=== PATIENT | male | born 1945 | race Caucasian/White ===

== ENCOUNTER 2016-03-14 09:55 | Outpatient (CLI) ==
--- NOTE | 2016-03-14 10:43 | DI ---
EXAM: Views of the orbits. HISTORY: I claims TECHNIQUE: AP and lateral views of the orbits were obtained. FINDINGS: No definite radiopaque foreign bodies are seen. The soft tissues are normal. IMPRESSION: No evidence of radiopaque foreign body seen within the orbits.
--- NOTE | 2016-03-14 14:49 | MRI ---
EXAM: MRI right shoulder without contrast. HISTORY: Right shoulder pain. No right shoulder surgery reported.. TECHNIQUE: Using a local coil on a high field strength magnet multiplanar multisequence magnet reso nance imaging was performed of the right shoulder without intravenous or intra-articular gadolinium contrast. COMPARISON: Two-view plain film examination right shoulder 07/16/2012.. FINDINGS: A predominately Type I acromion with some slight anterolateral downsloping with subacromi al remodeling. Some thickening along the acromial attachment the coracoacromial ligament/arch which is otherwise intact. Moderate right acromioclavicular joint osteoarthrosis. Deltoid musculature w ithin normal limits signal intensity. No appreciable free fluid subacromial/subdeltoid bursa. Muscle bulk of the rotator cuff within normal limit. Moderate to marked supraspinatus tendinosis mo st evident over the far anterior insertional aspect. Bursal sided fraying. Posterior mild infraspi natus tendinosis. No full-thickness rotator cuff tear identified. Posterior intact teres minor ten don fibers. Anterior intact subscapularis tendon fibers. The long head of the biceps tendon shows intact fibers located in expected position within the bicipital groove with intra-articular biceps t endinosis. Right humeral head seated. Early right glenohumeral joint osteoarthrosis. No right glenohumeral kindra int centered bone erosions. Physiologic amount fluid right glenohumeral joint. Focus of intraosseo us cysts/ganglion formation along the base of the coracoid or possible prominent vascularity/hyperem ia. Right glenoid labrum poorly characterized and incompletely evaluated on this non-arthrographic examination. IMPRESSION: Moderate right acromioclavicular joint osteoarthrosis. Moderate to marked supraspinatus tendinosis most evident over the far anterior insertional aspect. Bursal sided fraying. Posterior mild infraspinatus tendinosis. No full-thickness rotator cuff tear identified. No appreciable free fluid subacromial/subdeltoid bursa. Intact long head biceps tendon fibers with intra-articular tendinosis. Early right glenohumeral joint osteoarthrosis. Recommendation is obtainment and correlation with recent plain film radiographs of the right shoulde r as none are available for comparison at the time of this dictation.
== END 2016-03-14 09:56 | disposition home or self-care (01) ==
LOC: RAD 09:55
PROVIDERS: ATTEND Emergency Medicine
DX: M25.511 Pain in right shoulder (principal)

== ENCOUNTER 2017-04-06 11:44 | Outpatient (CLI) | END 2017-04-06 11:45 | disposition home or self-care (01) | LOC: LAB 11:44 | PROVIDERS: ATTEND Internal Medicine Rheumatology | DX: N18.3 Chronic kidney disease, stage 3 (moderate) (principal); I10 Essential (primary) hypertension; E11.9 Type 2 diabetes mellitus without complications; E78.5 Hyperlipidemia, unspecified; R53.83 Other fatigue; M06.9 Rheumatoid arthritis, unspecified; Z79.899 Other long term (current) drug therapy | CPT/HCPCS: 36415; 80053; 80061; 80074; 81001; 82043; 82306; 83036; 83970; 84443; 84550; 85025; 86200; 86430 ==

== ENCOUNTER 2017-04-22 12:28 | Outpatient (CLI) | END 2017-04-22 12:29 | disposition home or self-care (01) | LOC: LAB 12:28 | PROVIDERS: ATTEND Internal Medicine Rheumatology | DX: R53.83 Other fatigue (principal); M05.79 Rheumatoid arthritis with rheumatoid factor of multiple sites without organ or systems involvement; N18.3 Chronic kidney disease, stage 3 (moderate); Z79.899 Other long term (current) drug therapy | CPT/HCPCS: 36415; 87522 ==

== ENCOUNTER 2017-05-01 21:15 | Emergency (ER) ==
[2017-05-01 21:36] VITALS: BP 155/69; TEMP 98; BMI 25.4
[2017-05-01] MEDS ORDERED: BACTRIM DS 800/160 MG PO STA (21:54)
--- NOTE | 2017-05-01 22:10 | ED.PDOC ---
General ED Provider: Dr. VASU KAN Chief Complaint: Bite Stated Complaint: Patient is a 72 year old male who complains of left her wound that started 3 days ago after wearing his high boots Thinks he may have been bit by a spider. Has been taking an old prescription of penicillin. He states that the would has slightly enlarged but has dried up with no drainage and is flat. They were concerned that they area not on the right antibiotics. he did clean the would initially with alcohol and peroxide. Time Seen by Physician: 21:30 Mode of Arrival: Walk-In Information Source: Patient, Family Exam Limitations: No limitations Primary Care Provider: CAROLE DAWKINS Nursing and Triage Documentation Reviewed and Agree: Yes Reviewed sepsis parameters & appropriate labs ordered?: No System Inflammatory Response Syndrome: Not Applicable Sepsis Protocol: For patient's 13 years and over: Temp is 96.8 and below OR 101 and greater Pulse >90 BPM Resp >20/minute Acutely Altered Mental Status Are patient's symptoms suggestive of a new infection, such as: -Pneumonia -Skin, Soft Tissue -Endocarditis -UTI -Bone, Joint Infection -Implantable Device -Acute Abdominal Infection -Wound Infection -Meningitis -Blood Stream Catheter Infection -Unknown System Inflammatory Response Syndrome: Not Applicable Skin Complaint Exam - Skin/Soft Tissue Complaint/Exam Onset/Duration: 3 days Symptoms Are: Still present Timing: Constant Initial Severity: Moderate Current Severity: Mild Location: Left mid her Character: Reports: Redness. Denies: Swelling, Raised, Painful Aggravating: Reports: None Alleviating: Reports: None Associated Signs and Symptoms: Reports: Red streaks. Denies: Fever, Chills, Itching, Drainage, Bruising, Tenderness, Joint swelling Related History: Reports: Insect bite/sting. Denies: Similar episode, Recent trauma, Recent Med change, Prior MRSA/VRE, Recent inpatient, Recent travel, Immunocompromised Related Surgical History: Reports: None Recent Exposure to Others w/Similar Symptoms: No Skin Findings: Present: Erythema (3 cm with a dry granulation tissue at the center measuring 1.75 cm in diameter. ) Joint Tenderness Present: No Differential Diagnoses: Abscess, Cellulitis Review of Systems - Review Of Systems Constitutional: Reports: No symptoms Eyes: Reports: No symptoms Ears, Nose, Mouth, Throat: Reports: No symptoms Respiratory: Reports: No symptoms Cardiac: Reports: No symptoms GI: Reports: No symptoms : Reports: No symptoms Musculoskeletal: Reports: No symptoms Skin: Reports: Lesions Neurological: Reports: Anxiety Endocrine: Reports: No symptoms Hematologic/Lymphatic: Reports: No symptoms All Other Systems: Reviewed and Negative Past Medical History - Past Medical History Previously Healthy: Yes Endocrine: Reports: DM 2, Dyslipidemia Cardiovascular: Reports: CAD, Hypertension Respiratory: Reports: None Hematological: Reports: None Gastrointestinal: Reports: None Genitourinary: Reports: CKD Neuro/Psych: Reports: CVA Musculoskeletal: Reports: Arthritis Cancer: Reports: Skin - Surgical History General Surgical History: Reports: Tonsillectomy, CABG, Other (bilateral cataracats, Multiple eye surgeries. ) - Family History Family History: Reports: Unknown - Social History Smoking Status: Former smoker Hx Substance Use: Yes (ALCOHOLIC CLEAN FOR 30 YEARS) Alcohol Screening: None - Immunizations Tetanus Shot up to Date: (UNKNOWN) Physical Exam - Physical Exam Appearance: Well-appearing, No pain distress, Well-nourished Eyes: NOEMI, EOMI, Conjunctiva clear ENT: Ears normal, Nose normal, Oropharynx normal Respiratory: Airway patent, Breath sounds clear, Breath sounds equal, Respirations nonlabored Cardiovascular: RRR, Pulses normal, No rub, No murmur GI/: Soft, Nontender, No masses, Bowel sounds normal, No Organomegaly Musculoskeletal: Normal strength, ROM intact, No edema, No calf tenderness Skin: Warm, Dry Neurological: Sensation intact, Motor intact, Reflexes intact, Cranial nerves intact, Alert, Oriented Psychiatric: Affect appropriate, Mood appropriate Critical Care Note - Critical Care Note Total Time (mins): 0 Course - Course Orders, Labs, Meds: Orders Category Date Time Status Sulfamethoxazole/Trimethoprim [Bactrim Ds 800/160 mg] MEDS 05/01/17 21:54 Discontinued 1 tab PO ONCE STA Medications Discontinued Medications Generic Name Dose Route Start Last Admin Trade Name Freq PRN Reason Stop Dose Admin Trimethoprim/Sulfamethoxazole 1 tab 05/01/17 21:54 05/01/17 22:02 Bactrim Ds 800/160 Mg PO 05/01/17 21:55 1 tab ONCE STA Administration Vital Signs: Temp Pulse Resp BP Pulse Ox 05/01/17 21:18 98 F 66 20 155/69 H 97 Departure - Departure Time of Disposition: 22:11 Disposition: HOME SELF-CARE Discharge Problem: Healing wound Spider bite Qualifiers: Encounter type: initial encounter Injury intent: accidental or unintentional Qualified Code(s): T63.301A - Toxic effect of unspecified spider venom, accidental (unintentional), initial encounter Instructions: Wound Infection (ED) Condition: Stable Pt referred to PMD for follow-up: Yes IPMP verified?: No Additional Instructions: Take Medications as prescribe Follow up with PCP in 3 days Keep would Dry Prescriptions: Sulfamethoxazole/Trimethoprim [Bactrim Ds Tablet] 1 each PO BID #20 tablet Allergies/Adverse Reactions: Allergies No Known Allergies Allergy (Verified 07/26/13 07:31) Home Medications: Ambulatory Orders Al[place]iren Hemifumarate [Tekturna] 300 mg PO DAILY 05/01/17 Amlodipine Besylate [Norvasc] 10 mg PO DAILY 05/01/17 Aspirin 325 mg PO DAILY 05/01/17 Clopidogrel Bisulfate [Plavix] 75 mg PO DAILY 05/01/17 Ferrous Sulfate [Iron] 325 mg PO TID 05/01/17 Folic Acid 1 mg PO DAILY 05/01/17 Insulin Aspart [Novolog Insulin] 0 unit SUBCUT DIRECTED 05/01/17 Losartan Potassium [Cozaar] 100 mg PO DAILY 05/01/17 Methotrexate Sodium [Methotrexate] 2.5 mg PO DIRECTED 05/01/17 Omeprazole [Prilosec] 20 mg PO BIDAC 05/01/17 Pravastatin Sodium [Pravachol] 40 mg PO BID 05/01/17 Sulfamethoxazole/Trimethoprim [Bactrim Ds Tablet] 1 each PO BID #20 tablet 05/01 Disposition Discussed With: Patient, Family
== END 2017-05-01 22:22 | disposition home or self-care (01) ==
LOC: ED 21:15
DX: T63.301A Toxic effect of unspecified spider venom, accidental (unintentional), initial encounter (principal)
CPT/HCPCS: 99282

== ENCOUNTER 2017-08-05 14:26 | Outpatient (CLI) | payer OTHER | END 2017-08-05 14:27 | disposition home or self-care (01) | LOC: LAB 14:26 | PROVIDERS: ATTEND Internal Medicine Rheumatology | DX: R53.83 Other fatigue (principal); G62.9 Polyneuropathy, unspecified; M19.90 Unspecified osteoarthritis, unspecified site; M79.1 Myalgia; E83.42 Hypomagnesemia; E55.9 Vitamin D deficiency, unspecified; D53.8 Other specified nutritional anemias | CPT/HCPCS: 36415; 82306; 82550; 82607; 82728; 82746; 83735; 84439; 84443; 84550; 85651; 86038; 86320; 86325 ==

== ENCOUNTER 2017-08-22 11:24 | Outpatient (CLI) | payer OTHER | END 2017-08-22 11:25 | disposition home or self-care (01) | LOC: LAB 11:24 | PROVIDERS: ATTEND Internal Medicine Rheumatology | DX: R53.83 Other fatigue (principal); M05.79 Rheumatoid arthritis with rheumatoid factor of multiple sites without organ or systems involvement; N18.3 Chronic kidney disease, stage 3 (moderate); Z79.899 Other long term (current) drug therapy | CPT/HCPCS: 36415; 87522 ==

== ENCOUNTER 2017-08-28 09:05 | Outpatient (CLI) ==
--- NOTE | 2017-08-28 10:09 | CT ---
EXAM: CT abdomen pelvis without contrast HISTORY: Pain in and kidney impairment COMPARISON: None TECHNIQUE: CT abdomen pelvis performed without intravenous contrast. Coronal and sagittal reformatt ed images obtained. FINDINGS: Please refer to separate report CT chest regarding findings in the lower chest. No free a ir. No acute abnormalities of the bones. Degenerative change in the spine. Evaluation organ parenc hyma limited without contrast. Liver grossly unremarkable. Patient status post cholecystectomy. Panc reas grossly unremarkable. Spleen grossly unremarkable. Adrenals unremarkable. Bilateral renal cys ts measure up to 1.6 cm. No hydronephrosis or nephrolithiasis. Areas of renal cortical scarring li yuni related to remote insult. Aorta normal in caliber. Moderate atherosclerosis. Mild circumferen tial bladder wall thickening. Prostate is enlarged moderately enlarged. No lymphadenopathy or ascit es. Small fat-containing periumbilical hernia. Stomach appears normal. No dilated loops small teresa l. Appendix appears normal. Mild to moderate fecal retention in the colon. Colonic diverticulosis. IMPRESSION: 1. Moderately enlarged prostate. Mild bladder wall thickening may relate to changes of chronic outl et obstruction or cystitis. 2. Colonic diverticulosis. 3. Mild to moderate fecal retention. 4. Atherosclerosis. 5. No hydronephrosis or nephrolithiasis. Bilateral renal cysts. Areas of bilateral renal cortical scarring likely related to remote insult.
--- NOTE | 2017-08-28 10:09 | CT ---
EXAM: CT chest without contrast. HISTORY: Anemia. Chest pain. COMPARISON: 07/16/2012. TECHNIQUE: Multiple axial images of the chest were obtained without intravenous contrast. Images we re reformatted in the sagittal and coronal planes. FINDINGS: Large low density right thyroid nodule measures up to 3.7 x 3 x 3.5 cm with some mass effe ct on the trachea. Evaluation for lymphadenopathy is limited by lack of intravenous contrast. There has been previous CABG. Heart size is normal. No pericardial effusion identified. Atherosclerotic calcifications are present. There are linear areas of consolidation in the posterior right upper lobe and in both lower lobes, wh ich were present on prior examination although decreased in size. No pleural effusion or pneumothora x detected. Calcified granulomatous changes are present. Limited images of the upper abdomen will be reported separately. No acute osseous abnormality identi fied. IMPRESSION: 1. Bilateral areas of scarring. No acute pulmonary process. 2. Large right thyroid nodule. Ultrasound correlation advised
--- NOTE | 2017-08-28 13:01 | NM ---
EXAM: Whole body bone scan HISTORY: Whole body pains COMPARISON: None of this type TECHNIQUE: Anterior and posterior whole body bone scans were obtained following the intravenous admin istration of 23.9 mCi of technetium 99m HDP, followed by spot views of areas of interest. FINDINGS: There is a focus of increased activity at the base of the thumb bilaterally representing in jection site. Mildly increased activity is present in the mid thoracic spine representing a very mil d degenerative disease. No other abnormal focus of increased or decreased isotope activity is seen. Kidneys and soft tissues are normal. IMPRESSION: Mild degenerative change mid thoracic spine. No other abnormality.
== END 2017-08-28 09:06 | disposition home or self-care (01) ==
LOC: RAD 09:05
PROVIDERS: ATTEND Internal Medicine Medical Oncology
DX: N18.9 Chronic kidney disease, unspecified (principal); D63.1 Anemia in chronic kidney disease; R53.83 Other fatigue; R20.0 Anesthesia of skin; M79.1 Myalgia; I25.2 Old myocardial infarction; E11.8 Type 2 diabetes mellitus with unspecified complications; Z79.4 Long term (current) use of insulin; Z12.5 Encounter for screening for malignant neoplasm of prostate; Z86.73 Personal history of transient ischemic attack (TIA), and cerebral infarction without residual deficits; Z79.899 Other long term (current) drug therapy
CPT/HCPCS: 36415; 80053; 80074; 81001; 82668; 82728; 83540; 83550; 83615; 85025; 85045; 85610; 85651; 85730; 86320; 86880; 87086; 87389

== ENCOUNTER 2017-09-04 11:53 | Outpatient (CLI) | payer OTHER ==
--- NOTE | 2017-09-04 13:26 | US ---
EXAM: Thyroid ultrasound HISTORY: Thyroid nodules. COMPARISON: CT chest 08/28/2017 TECHNIQUE: Sonographic evaluation of the thyroid was performed with limited doppler. FINDINGS: The right thyroid measures 5.4 x 3.0 x 3.4 cm. The right thyroid demonstrates a large complex nodule /mass measuring 3.4 x 3.4 x 3.7 centimeters with internal color Doppler flow. The isthmus measures 0.4 cm in thickness and is normal in echogenicity. The left thyroid measures 4.6 x 2.0 x 1.3 cm. There is a complex heterogeneity with multiple hypoecho ic complex nodules. The largest measures 1.4 x 0.6 x 1.0 cm. IMPRESSION: Large complex right thyroid mass/nodule with mild internal color Doppler flow. Tissue sampling is recommended to further evaluate. Additional multiple nodules and cysts are noted in the left thyroid. This may represent a component of multinodular goiter.
== END 2017-09-04 11:54 | disposition home or self-care (01) ==
LOC: RAD 11:53
PROVIDERS: ATTEND Internal Medicine Medical Oncology
DX: E04.1 Nontoxic single thyroid nodule (principal)

== ENCOUNTER 2017-09-25 10:51 | Outpatient (CLI) | END 2017-09-25 10:52 | disposition home or self-care (01) | LOC: LAB 10:51 | PROVIDERS: ATTEND Nurse Practitioner Family | DX: E11.22 Type 2 diabetes mellitus with diabetic chronic kidney disease (principal); I13.10 Hypertensive heart and chronic kidney disease without heart failure, with stage 1 through stage 4 chronic kidney disease, or unspecified chronic kidney disease; N18.3 Chronic kidney disease, stage 3 (moderate); D63.1 Anemia in chronic kidney disease; I25.10 Atherosclerotic heart disease of native coronary artery without angina pectoris; J44.9 Chronic obstructive pulmonary disease, unspecified; E78.5 Hyperlipidemia, unspecified; E04.1 Nontoxic single thyroid nodule; M06.9 Rheumatoid arthritis, unspecified | CPT/HCPCS: 36415; 80053; 80061; 81001; 82306; 82570; 83036; 83970; 84156; 84443; 84550; 85025 ==

== ENCOUNTER 2018-01-08 13:59 | Outpatient (CLI) | payer OTHER | END 2018-01-08 14:00 | disposition home or self-care (01) | LOC: LAB 13:59 | PROVIDERS: ATTEND Internal Medicine Medical Oncology | DX: E78.5 Hyperlipidemia, unspecified (principal); E10.9 Type 1 diabetes mellitus without complications; N18.9 Chronic kidney disease, unspecified; D63.1 Anemia in chronic kidney disease; E04.1 Nontoxic single thyroid nodule; M06.9 Rheumatoid arthritis, unspecified; Z79.4 Long term (current) use of insulin; M79.18 Myalgia, other site | CPT/HCPCS: 36415; 80053; 82248; 82728; 83036; 83540; 83550; 83615; 84443; 85008; 85025; 85045; 86880 ==

== ENCOUNTER 2018-01-22 13:21 | Outpatient (CLI) | payer OTHER | END 2018-01-22 13:22 | disposition home or self-care (01) | LOC: LAB 13:21 | PROVIDERS: ATTEND Family Medicine | DX: I10 Essential (primary) hypertension (principal); Z09 Encounter for follow-up examination after completed treatment for conditions other than malignant neoplasm; D64.9 Anemia, unspecified | CPT/HCPCS: 36415; 85025 ==

== ENCOUNTER 2018-04-02 12:20 | Outpatient (CLI) | END 2018-04-02 12:21 | disposition home or self-care (01) | LOC: LAB 12:20 | PROVIDERS: ATTEND Internal Medicine Medical Oncology | DX: D64.9 Anemia, unspecified (principal); E04.1 Nontoxic single thyroid nodule; N18.9 Chronic kidney disease, unspecified | CPT/HCPCS: 36415; 80053; 82607; 82728; 82746; 83540; 83550; 83615; 85025; 86880 ==

== ENCOUNTER 2018-04-02 17:17 | Emergency (ER) ==
[2018-04-02 17:30] VITALS: BP 155/74; TEMP 96.5; BMI 25.1
--- NOTE | 2018-04-02 18:20 | CT ---
Exam: CT of the brain without intravenous contrast. Comparison: None available. Reason for exam: Dizziness. FINDINGS: No acute intracranial hemorrhage, mass effect, ventricular dilatation, or territorial infa rction. The quadrigeminal and ambient cisterns are patent. There is no extraaxial fluid collection. The calvarium appears intact without depressed fracture. Parenchymal changes are seen consistent w ith chronic microvascular disease. Impression: 1. No acute intracranial findings. 2. Parenchymal change consistent with chronic microvascular disease
--- NOTE | 2018-04-02 18:25 | CT ---
EXAM: CT chest without contrast HISTORY: Dizziness/cough TECHNIQUE: Multi-slice transaxial helical with coronal and sagittal reformed images CONTRAST: None COMPARISON: CT chest from 08/28/2017 FINDINGS: There is a large hypodense nodule in the right thyroid lobe measuring 3.9 cm. This has sli ghtly increased in size. The aorta is atherosclerotic. Post CABG changes are noted. The ascending aorta is ectatic to 32.1 mm. The heart is mildly enlarged. Aortic arch and descending aorta have no rmal caliber. No suspicious lymphadenopathy is detected. A right paratracheal space lymph node is c alcified. The lungs are emphysematous. The dependent lungs are atelectatic. A simple acquired renal cysts are noted. The solid abdominal organs are otherwise normal in their vi sualized portions of the upper abdomen. The gallbladder is surgically absent and there is no signifi cant biliary dilatation. The bones are free of suspicious osteolytic or osteoblastic lesions. IMPRESSION: 1. Bibasilar atelectasis and/or pneumonia. 2. Goiter with enlarging hypodense nodule right thyroid lobe measuring 3.9 cm. Correlate with detai ls of the previous ultrasound. 3. Post CABG changes. 4. Ectasia of the ascending aorta to 32.1 mm. 5. Emphysema. 6. Simple acquired renal cysts.
--- NOTE | 2018-04-02 18:33 | ED.PDOC ---
General ED Provider: Dr. ALVINO FISHER Chief Complaint: Dizziness Stated Complaint: dizziness Time Seen by Physician: 17:17 (seen with nurse at all time no chest pain , no syncope,no S.O.B) Mode of Arrival: Walk-In Information Source: Patient Exam Limitations: No limitations Primary Care Provider: SABAS GAMBLE Nursing and Triage Documentation Reviewed and Agree: Yes Does patient meet sepsis criteria?: No System Inflammatory Response Syndrome: Not Applicable Sepsis Protocol: For patient's 13 years and over: Temp is 96.8 and below OR 101 and greater Pulse >90 BPM Resp >20/minute Acutely Altered Mental Status Are patient's symptoms suggestive of a new infection, such as: -Pneumonia -Skin, Soft Tissue -Endocarditis -UTI -Bone, Joint Infection -Implantable Device -Acute Abdominal Infection -Wound Infection -Meningitis -Blood Stream Catheter Infection -Unknown Neurological Complaint Exam - Dizziness Complaint/Exam Last Known Well: LAST WEEK Onset: Gradual Duration: 1 DAY Symptoms Are: Resolved Timing: Intermittent Episodes Lasting: Seconds Initial Severity: Mild Current Severity: None Character: Reports: Lightheaded, Dizzy Aggravating: Reports: None Alleviating: Reports: None Associated Signs and Symptoms: Denies: Nausea, Vomiting, Diaphoresis, Tinnitus, Chest pain, Short of air, Palpitations, Unsteady gait, GI blood loss, Visual changes, Decreased oral intake, Change in medication, Change in diet, OTC meds, Loss of balance Related History: Similar episode Cardiac Risk Factors: Reports: Hypertension, Diabetes, Elevated lipids CVA Risk Factors: Reports: Diabetes, Hypertension Related Surgical History: Reports: None JVD Present: No Carotid Bruit Present: No Nystagmus Present: No Gag Reflex Present: Yes Meningeal Signs Positive: No Focal Weakness: Present: None Focal Sensory Loss: Present: None Gait: Normal Spegsw-is-[id number]: Normal Findings Babinski Sign: Negative Right, Negative Left Differential Diagnoses: Dysrhythmia, Hypovolemia, Labyrinthitis, Metabolic abnormalities, Vasovagal reaction Quality Indicators for Cardiac Chest Pain: EKG in 10min. Quality Indicators for AMI: EKG in 10min. Quality Indicator For Non-Traumatic Chest Pain/Syncope: EKG Performed Review of Systems - Review Of Systems Constitutional: Reports: No symptoms Eyes: Reports: No symptoms Ears, Nose, Mouth, Throat: Reports: No symptoms Respiratory: Reports: No symptoms Cardiac: Reports: No symptoms GI: Reports: No symptoms : Reports: No symptoms Musculoskeletal: Reports: No symptoms Skin: Reports: No symptoms Neurological: Reports: Other (DIZZINESS) Endocrine: Reports: No symptoms Hematologic/Lymphatic: Reports: No symptoms All Other Systems: Reviewed and Negative Past Medical History - Past Medical History Previously Healthy: Yes Endocrine: Reports: DM 2, Dyslipidemia Cardiovascular: Reports: CAD, Hypertension Respiratory: Reports: None Hematological: Reports: None Gastrointestinal: Reports: None Genitourinary: Reports: CKD Neuro/Psych: Reports: CVA Musculoskeletal: Reports: Arthritis Cancer: Reports: Skin - Surgical History General Surgical History: Reports: Tonsillectomy, CABG, Other (bilateral cataracats, Multiple eye surgeries. ) - Family History Family History: Reports: Unknown - Social History Smoking Status: Former smoker Hx Substance Use: Yes (ALCOHOLIC CLEAN FOR 30 YEARS) Alcohol Screening: None Physical Exam - Physical Exam Appearance: Well-appearing, No pain distress, Well-nourished Eyes: NOEMI, EOMI, Conjunctiva clear ENT: Ears normal, Nose normal, Oropharynx normal Respiratory: Airway patent, Breath sounds clear, Breath sounds equal, Respirations nonlabored Cardiovascular: RRR, Pulses normal, No rub, No murmur GI/: Soft, Nontender, No masses, Bowel sounds normal, No Organomegaly Musculoskeletal: Normal strength, ROM intact, No edema, No calf tenderness Skin: Warm, Dry, Normal color Neurological: Sensation intact, Motor intact, Reflexes intact, Cranial nerves intact, Alert, Oriented Psychiatric: Affect appropriate, Mood appropriate - NIH Stroke Scale 1a. Level of Consciousness: 0=Alert and keenly responsive 1b. Level of Consciousness Questions: 0=Answers correctly to two questions 1c. Level of Consciousness Commands: 0=Performs two tasks correctly 2. Best Gaze: 0=Normal 3. Visual: 0=No visual loss 4. Facial Palsy: 0=Normal 5a. Motor Left Arm: 0=No drift,arm holds 90 degrees for 10 sec., leg 30 degrees for 5 sec. 5b. Motor Right Arm: 0=No drift,arm holds 90 degrees for 10 sec., leg 30 degrees for 5 sec. 6a. Motor Left Le=No drift,arm holds 90 degrees for 10 sec., leg 30 degrees for 5 sec. 6b. Motor Right Le=No drift,arm holds 90 degrees for 10 sec., leg 30 degrees for 5 sec. 7. Limb Ataxia: 0=Absent 8. Sensory: 0=Normal 9. Best Language: 0=No aphasia 10. Dysarthria: 0=Normal 11. Extincion and Inattention: 0=Normal Stroke Scale Total: 0 Interpretation - Radiology Interpretation Radiology Interpretation By: Radiologist Radiology Results: No acute changes Physician Notification - Case Discussed Physician Notified: PMD Time of Notification: 18:34 (WILL SEE HIM IN THE OFFICE IN AM) Critical Care Note - Critical Care Note Total Time (mins): 0 Course - Course Hematology/Chemistry: 04/02/18 18:00 04/02/18 18:00 Orders, Labs, Meds: Lab Review 04/02/18 04/02/18 04/02/18 18:00 18:00 18:00 WBC 5.81 RBC 3.26 L Hgb 7.6 L Hct 24.9 L MCV 76.4 L MCH 23.3 L MCHC 30.5 L RDW Coeff of Keny 16.6 H Plt Count 294 Immature Gran % (Auto) 0.3 Neut % (Auto) 75.6 Lymph % (Auto) 14.8 Davison % (Auto) 6.9 Eos % (Auto) 1.9 Baso % (Auto) 0.5 Immature Gran # (Auto) 0.0 Neut # (Auto) 4.4 Lymph # (Auto) 0.9 Davison # (Auto) 0.4 Eos # (Auto) 0.1 Baso # (Auto) 0.0 PT 9.4 INR 0.94 APTT 19.6 L Sodium 135.6 Potassium 4.00 Chloride 97.1 L Carbon Dioxide 25.8 Anion Gap 16.70 BUN 17.8 Creatinine 1.17 H Estimated GFR (MDRD) 61.00 BUN/Creatinine Ratio 15.21 Glucose 308.5 H D Lactic Acid Calcium 9.10 Total Bilirubin 0.34 AST 22.4 ALT 13.1 Alkaline Phosphatase 51.0 L Total Creatine Kinase 67.2 Troponin I < 0.012 Total Protein 7.44 Albumin 4.35 Globulin 3.09 Albumin/Globulin Ratio 1.40 04/02/18 18:00 WBC RBC Hgb Hct MCV MCH MCHC RDW Coeff of Keny Plt Count Immature Gran % (Auto) Neut % (Auto) Lymph % (Auto) Davison % (Auto) Eos % (Auto) Baso % (Auto) Immature Gran # (Auto) Neut # (Auto) Lymph # (Auto) Davison # (Auto) Eos # (Auto) Baso # (Auto) PT INR APTT Sodium Potassium Chloride Carbon Dioxide Anion Gap BUN Creatinine Estimated GFR (MDRD) BUN/Creatinine Ratio Glucose Lactic Acid 1.41 Calcium Total Bilirubin AST ALT Alkaline Phosphatase Total Creatine Kinase Troponin I Total Protein Albumin Globulin Albumin/Globulin Ratio Orders Category Date Time Status EKG-(ED ONLY) Stat CARDIO 04/02/18 17:37 Ordered BLOOD CULTURE (ED ONLY) Stat LAB 04/02/18 18:00 Received CBC W/ AUTO DIFF Stat LAB 04/02/18 18:00 Completed COMPREHENSIVE METABOLIC PANEL Stat LAB 04/02/18 18:00 Completed CREATINE KINASE Stat LAB 04/02/18 18:00 Completed FLU A/B MOLECULAR Stat LAB 04/02/18 18:23 Received LACTIC ACID Stat LAB 04/02/18 18:00 Completed MOLECULAR GROUP A STREP Stat LAB 04/02/18 18:26 Received PARTIAL THROMBOPLASTIN TIME Stat LAB 04/02/18 18:00 Completed PROCALCITONIN Stat LAB 04/02/18 18:00 Received PT WITH INR Stat LAB 04/02/18 18:00 Completed TROPONIN I Stat LAB 04/02/18 18:00 Completed URINALYSIS C & S IF INDICATED Stat LAB 04/02/18 17:[address] CHEST W/O CONTRAST Stat RADS 04/02/18 17:[address] HEAD W/O CONTRAST Stat RADS 04/02/18 17:42 Completed Vital Signs: Temp Pulse Resp BP Pulse Ox 04/02/18 17:17 96.5 F L 75 20 155/74 H 99 Departure - Departure Time of Disposition: 18:34 Disposition: HOME SELF-CARE Discharge Problem: Dizziness Anemia Qualifiers: Anemia type: unspecified type Qualified Code(s): D64.9 - Anemia, unspecified Instructions: Dizziness (ED), Lightheadedness (ED) Condition: Good Pt referred to PMD for follow-up: Yes IPMP verified?: No Additional Instructions: Please call your Family Physician as soon as possible to schedule a follow-up appointment. Allergies/Adverse Reactions: Allergies colchicine Adverse Reaction (Verified 04/02/18 17:28) indomethacin [From Indocin] Adverse Reaction (Verified 04/02/18 17:28) indomethacin sodium [From Indocin] Adverse Reaction (Verified 04/02/18 17:28) Home Medications: Ambulatory Orders Aspirin 325 mg PO DAILY 05/01/17 Calcium Carbonate [Calcium] 600 mg PO DAILY 12/14/17 Diphenhydramine HCl [Allergy] 25 mg PO PRN PRN 12/14/17 Folic Acid 3 mg PO DAILY 04/02/18 Mirabegron [Myrbetriq] 50 mg PO DAILY 04/02/18 Ranitidine HCl [Zantac] 150 mg PO BIDAC 04/02/18 Disposition Discussed With: Patient, Family
== END 2018-04-02 18:59 | disposition home or self-care (01) ==
LOC: ED 17:17
DX: R42 Dizziness and giddiness (principal); D64.9 Anemia, unspecified; N18.9 Chronic kidney disease, unspecified; I10 Essential (primary) hypertension; E78.5 Hyperlipidemia, unspecified; E11.9 Type 2 diabetes mellitus without complications; I25.810 Atherosclerosis of coronary artery bypass graft(s) without angina pectoris; Z86.73 Personal history of transient ischemic attack (TIA), and cerebral infarction without residual deficits; Z79.899 Other long term (current) drug therapy; E04.1 Nontoxic single thyroid nodule
CPT/HCPCS: 36415; 80053; 81001; 82550; 82607; 82728; 82746; 83540; 83550; 83605; 83615; 84145; 84484; 85025; 85610; 85730; 86880; 87040; 87502; 87651; 93005; 93010; 99283

== ENCOUNTER 2018-04-04 11:43 | Outpatient (CLI) | payer OTHER ==
--- NOTE | 2018-04-04 14:05 | US ---
EXAM: Thyroid ultrasound HISTORY: Thyroid nodule COMPARISON: 09/04/2017 TECHNIQUE: Thyroid ultrasound was performed FINDINGS: Right thyroid measures 3.6 x 3.6 x 5.8 cm. Left thyroid measures 2.2 x 1.3 x 4.9 cm. Thy roid isthmus measures 0.4 cm. Thyroid normal in echogenicity vascularity. There is a predominately solid dominant nodule in the right mid thyroid measuring 3.6 x 3.5 x 3.5 centimeters. Several small cystic and hypoechoic nodules left thyroid, largest measuring 0.7 x 0.6 x 0.5 cm in the mid thyroid. Nodules are unchanged from prior examination. IMPRESSION: Stable bilateral thyroid nodules, including a dominant right thyroid nodule that has bee n previously biopsied.
== END 2018-04-04 11:44 | disposition home or self-care (01) ==
LOC: RAD 11:43
PROVIDERS: ATTEND Otolaryngology
DX: E04.1 Nontoxic single thyroid nodule (principal); D64.9 Anemia, unspecified
CPT/HCPCS: 36415; 84439; 84443; 84480

== ENCOUNTER 2018-04-09 10:35 | Outpatient (CLI) | END 2018-04-09 10:36 | disposition home or self-care (01) | LOC: RHC-LAB 10:35 → LAB 10:36 | PROVIDERS: ATTEND Family Medicine | DX: D64.9 Anemia, unspecified (principal); E04.1 Nontoxic single thyroid nodule; M06.9 Rheumatoid arthritis, unspecified | CPT/HCPCS: 36415; 80053; 82272; 82728; 83540; 83550; 85008; 85025 ==

== ENCOUNTER 2018-04-16 11:21 | Outpatient (CLI) | payer OTHER | END 2018-04-16 11:22 | disposition home or self-care (01) | LOC: LAB 11:21 | PROVIDERS: ATTEND Internal Medicine Medical Oncology | DX: D64.9 Anemia, unspecified (principal) | CPT/HCPCS: 36415; 85007; 85008; 85025 ==

== ENCOUNTER 2018-04-23 11:15 | Outpatient (CLI) | payer OTHER | END 2018-04-23 11:16 | disposition home or self-care (01) | LOC: LAB 11:15 | PROVIDERS: ATTEND Internal Medicine Medical Oncology | DX: D64.9 Anemia, unspecified (principal) | CPT/HCPCS: 36415; 85008; 85025 ==

== ENCOUNTER 2018-04-30 09:55 | Outpatient (CLI) | payer OTHER | END 2018-04-30 09:56 | disposition home or self-care (01) | LOC: LAB 09:55 | PROVIDERS: ATTEND Internal Medicine Medical Oncology | DX: D64.9 Anemia, unspecified (principal) | CPT/HCPCS: 36415; 85025 ==

== ENCOUNTER 2018-05-07 11:39 | Outpatient (CLI) | END 2018-05-07 11:40 | disposition home or self-care (01) | LOC: LAB 11:39 | PROVIDERS: ATTEND Internal Medicine Medical Oncology | DX: D64.9 Anemia, unspecified (principal); E04.1 Nontoxic single thyroid nodule | CPT/HCPCS: 36415; 80053; 82607; 82746; 83615; 85008; 85025; 85045; 86880 ==

== ENCOUNTER 2018-05-31 11:45 | Emergency (ER) | payer OTHER ==
[2018-05-31 12:49] VITALS: BP 165/64; TEMP 98.2; BMI 26.0
--- NOTE | 2018-05-31 13:28 | ED.PDOC ---
General ED Provider: Dr. KEYSHA MURDOCK Chief Complaint: Chest Wall Injury/Pain Stated Complaint: right lower chest or high epigastric source of contrinuous discomfort.No apparent distress.Denies N&V or SOB.Insulin pump in place RLQ/. Time Seen by Physician: 12:50 Mode of Arrival: Walk-In Information Source: Patient Exam Limitations: No limitations Primary Care Provider: SABAS GAMBLE Nursing and Triage Documentation Reviewed and Agree: Yes Does patient meet sepsis criteria?: No System Inflammatory Response Syndrome: Not Applicable Sepsis Protocol: For patient's 13 years and over: Temp is 96.8 and below OR 101 and greater Pulse >90 BPM Resp >20/minute Acutely Altered Mental Status Are patient's symptoms suggestive of a new infection, such as: -Pneumonia -Skin, Soft Tissue -Endocarditis -UTI -Bone, Joint Infection -Implantable Device -Acute Abdominal Infection -Wound Infection -Meningitis -Blood Stream Catheter Infection -Unknown GI Complaint Exam - Abdominal Pain Complaint/Exam Onset: Gradual Duration: few days Symptoms Are: Still present Timing: Constant Initial Severity: Moderate Current Severity: Mild Location of Pain: Discrete Radiates To: Reports: Flank Character: Reports: Aching Aggravating: Reports: Movement Alleviating: Reports: Rest Associated Signs and Symptoms: Reports: Decreased activity. Denies: Dysuria AAA Risk Factors: Reports: Hypertension Cardiac Risk Factors: Reports: Hypertension Testicular Torsion Risk Factors: Reports: None Surgical Obstruction Risk Factors: Reports: None Related Surgical History: Reports: None Abdominal Findings: Present: None Differential Diagnoses: Constipation, Diverticulitis, Hepatitis Quality Indicators for AMI: ASA Given if indicated Review of Systems - Review Of Systems Constitutional: Reports: Weakness Eyes: Reports: No symptoms Ears, Nose, Mouth, Throat: Reports: No symptoms Respiratory: Reports: No symptoms Cardiac: Reports: No symptoms GI: Reports: Abdomen distended, Other : Reports: No symptoms Musculoskeletal: Reports: No symptoms Neurological: Reports: No symptoms Endocrine: Reports: No symptoms Hematologic/Lymphatic: Reports: No symptoms All Other Systems: Reviewed and Negative Past Medical History - Past Medical History Previously Healthy: Yes Endocrine: Reports: DM 2, Dyslipidemia Cardiovascular: Reports: CAD, Hypertension Respiratory: Reports: None Hematological: Reports: None Gastrointestinal: Reports: None Genitourinary: Reports: CKD Neuro/Psych: Reports: CVA Musculoskeletal: Reports: Arthritis Cancer: Reports: Skin - Surgical History General Surgical History: Reports: Tonsillectomy, CABG, Other (bilateral cataracats, Multiple eye surgeries. ) - Family History Family History: Reports: Unknown - Social History Smoking Status: Former smoker Hx Substance Use: Yes (ALCOHOLIC CLEAN FOR 30 YEARS) Alcohol Screening: None Physical Exam - Physical Exam Appearance: Thin Ill-appearing: Mild Pain Distress: Mild ENT: Ears normal Cardiovascular: RRR GI/: Nontender Musculoskeletal: Normal strength Skin: Warm Neurological: Sensation intact Critical Care Note - Critical Care Note Total Time (mins): 0 Course - Course Hematology/Chemistry: 05/31/18 13:47 05/31/18 13:47 Orders, Labs, Meds: Lab Review 05/31/18 05/31/18 13:47 13:47 WBC 7.99 RBC 4.39 L Hgb 11.3 L Hct 36.2 L MCV 82.5 MCH 25.7 L MCHC 31.2 L RDW Coeff of [place] 15.3 H Plt Count 260 Immature Gran % (Auto) 0.4 Neut % (Auto) 75.6 Lymph % (Auto) 16.9 [place] % (Auto) 4.1 Eos % (Auto) 2.4 Baso % (Auto) 0.6 Immature Gran # (Auto) 0.0 Neut # (Auto) 6.0 Lymph # (Auto) 1.4 [place] # (Auto) 0.3 L Eos # (Auto) 0.2 Baso # (Auto) 0.1 Sodium 135.0 Potassium 4.26 Chloride 100.8 Carbon Dioxide 24.0 Anion Gap 14.46 BUN 22.2 H Creatinine 1.16 H Estimated GFR (MDRD) 62.00 BUN/Creatinine Ratio 19.13 Glucose 268.4 H Calcium 9.21 Total Bilirubin 0.40 AST 18.5 ALT 11.7 Alkaline Phosphatase 52.9 L Total Protein 7.51 Albumin 4.04 Globulin 3.47 Albumin/Globulin Ratio 1.16 Orders Category Date Time Status NPO REMINDER: IMAGING ONCE CARE 05/31/18 13:35 Completed NPO REMINDER: IMAGING ONCE CARE 05/31/18 13:52 Completed CBC W/ AUTO DIFF Stat LAB 05/31/18 13:47 Completed CMP [COMPREHENSIVE METABOLIC PANEL] Stat LAB 05/31/18 13:[address] ABDOMEN/PELVIS W CONTRAST Stat RADS 05/31/18 13:[address] CHEST W/CONTRAST Stat RADS 05/31/18 13:32 Completed Vital Signs: Temp Pulse Resp BP Pulse Ox 05/31/18 12:45 98.2 F 66 16 165/64 H 98 Departure - Departure Time of Disposition: 16:17 Disposition: HOME SELF-CARE Discharge Problem: Anemia Instructions: Iron Deficiency Anemia (ED) Condition: Good Pt referred to PMD for follow-up: Yes IPMP verified?: No Allergies/Adverse Reactions: Allergies colchicine Adverse Reaction (Verified 05/31/18 12:49) indomethacin [From Indocin] Adverse Reaction (Verified 05/31/18 12:49) indomethacin sodium [From Indocin] Adverse Reaction (Verified 05/31/18 12:49) Home Medications: Ambulatory Orders Aspirin 325 mg PO DAILY 05/01/17 Calcium Carbonate [Calcium] 600 mg PO DAILY 12/14/17 Folic Acid 4 tab PO DAILY 04/02/18 Mirabegron [Myrbetriq] 50 mg PO DAILY 04/02/18 Diphenhydramine HCl [Benadryl] 25 mg PO DAILY PRN 05/31/18 Icosapent Ethyl [Vascepa] 2 gm PO BID 05/31/18 Methotrexate Sodium [Methotrexate] 8 tab PO WEEKLY 05/31/18 Omeprazole [Prilosec] 20 mg PO 1-2XD PRN 05/31/18 Disposition Discussed With: Patient, Family
--- NOTE | 2018-05-31 15:14 | CT ---
Exam: CT chest with intravenous contrast. Comparison: CT chest performed 08/28/2017. Reason for exam: Thoracic discomfort right side. FINDINGS: 3.8 cm cystic lesion in the right thyroid with wall thickening. The aorta is normal in course and caliber. The heart is not enlarged. Atherosclerotic disease is seen within the aorta and distal arterial vasculature including the river ry vessels. Ground-glass nodularity is seen in the right apex with air bronchograms and ground-glass in the right posterior upper lobe and bibasilar atelectasis. No pleural effusion is seen. Diffuse scarring changes with parenchymal thickening and nodular ground-glass seen throughout both tabby ngs. Similar appearing parenchymal scarring in the right upper lobe with spiculated margins measurin g 3.3 x 2.3 cm as seen on coronal image number 70. There are multiple sub centimeter nodular ground- glass opacities seen throughout both lungs as seen on coronal image images 22, 42, 56, and 63, And bibasilar atelectasis with air bronchograms. No pleural effusion or pneumothorax. Prominent appearing left axillary lymph node seen on axial image number 18 with a rounded appearance. The partially imaged left and right kidneys appear mildly atrophic. Impression: 1. Large right thyroid nodule with wall thickening. Recommend fine-needle aspiration if not already performed. 2. Scarring changes are seen throughout the lung parenchyma not significantly changed from previous study 3. Sub centimeter ground-glass nodularity is seen throughout both lungs as described. 3-month follo w-up CT examination is recommended to document stability. 4. Prominent appearing left axillary lymph node on axial image number 18. Recommend attention this region on follow up imaging. 5. Please see CT examination of the abdomen pelvis performed on the same day for characterization of the subdiaphragmatic contents
--- NOTE | 2018-05-31 15:15 | CT ---
EXAM: CT of the abdomen pelvis with contrast History: Right flank pain. Comparison: Chest CT 05/31/2018, CT abdomen pelvis 08/28/2017 Technique: Multiplanar CT images through the abdomen pelvis were obtained following administration o f IV contrast Findings: Bibasilar subsegmental atelectasis or pneumonia. Coronary calcifications. No acute osseou s abnormalities. Gallbladder is not well distended. Cholelithiasis. No focal liver or splenic lesions. There is josiah e atrophy of the pancreas. No peripancreatic inflammation. Adrenal glands are unremarkable. Bilate ral renal cysts measuring up to 1.3 cm on the right and 2 cm on the left. Bilateral renal cortical s carring again noted. No renal stones and no hydronephrosis. No ureteral calculi. Atherosclerotic v ascular calcifications. Fluid seen in the stomach. Nondilated fluid filled loops of small bowel. T he appendix is not seen. There are no secondary signs of appendicitis. Mild to moderate colonic sto ol. No free air and no ascites. Bladder is moderately distended. No bladder wall thickening. Prom inent prostate. No perirectal inflammation. No abdominal aortic aneurysm. Impression: 1. Mild gastroenteritis. No bowel obstruction. 2. Cholelithiasis. 3. Bilateral renal cysts. 4. Moderate bladder distension but no bladder wall thickening. 5. Prominent prostate. 6. Bibasilar subsegmental atelectasis or pneumonia
== END 2018-05-31 16:40 | disposition home or self-care (01) ==
LOC: ED 11:45
DX: N18.9 Chronic kidney disease, unspecified (principal); D63.1 Anemia in chronic kidney disease; I10 Essential (primary) hypertension; R53.1 Weakness; R07.9 Chest pain, unspecified; E11.9 Type 2 diabetes mellitus without complications; E78.5 Hyperlipidemia, unspecified; I25.810 Atherosclerosis of coronary artery bypass graft(s) without angina pectoris; Z79.899 Other long term (current) drug therapy; Z79.4 Long term (current) use of insulin; Z86.73 Personal history of transient ischemic attack (TIA), and cerebral infarction without residual deficits
CPT/HCPCS: 36415; 80053; 85025; 99283

== ENCOUNTER 2018-06-04 10:34 | Outpatient (CLI) | payer OTHER | END 2018-06-04 10:35 | disposition home or self-care (01) | LOC: LAB 10:34 | PROVIDERS: ATTEND Internal Medicine Medical Oncology | DX: E04.1 Nontoxic single thyroid nodule (principal); D64.9 Anemia, unspecified | CPT/HCPCS: 36415; 80053; 85025 ==

== ENCOUNTER 2018-07-02 10:08 | Outpatient (CLI) | END 2018-07-02 10:09 | disposition home or self-care (01) | LOC: LAB 10:08 | PROVIDERS: ATTEND Nurse Practitioner Family | DX: E04.1 Nontoxic single thyroid nodule (principal); D64.9 Anemia, unspecified; K86.2 Cyst of pancreas; K21.9 Gastro-esophageal reflux disease without esophagitis; K59.09 Other constipation; E10.9 Type 1 diabetes mellitus without complications | CPT/HCPCS: 36415; 80053; 80061; 82150; 83036; 83690; 85025 ==

== ENCOUNTER 2018-07-30 09:43 | Outpatient (CLI) | END 2018-07-30 09:44 | disposition home or self-care (01) | LOC: LAB 09:43 | PROVIDERS: ATTEND Internal Medicine Medical Oncology | DX: E04.1 Nontoxic single thyroid nodule (principal); D64.9 Anemia, unspecified | CPT/HCPCS: 36415; 80053; 85025 ==

== ENCOUNTER 2018-10-30 08:00 | Outpatient (CLI) ==
--- NOTE | 2018-10-30 09:37 | CT ---
EXAM: CT abdomen pelvis without with contrast HISTORY: Right lower quadrant pain COMPARISON: 05/31/2018 TECHNIQUE: CT abdomen pelvis performed with intravenous contrast. Coronal and sagittal reformatted images obtained. FINDINGS: Bibasilar the atelectasis and/or consolidation appears increased mildly increased at the r ight lung base. No free air. No acute abnormalities of the bones. Degenerative change in the spine . Heart mildly enlarged. Cardiac pacer. Bilateral gynecomastia. Liver unremarkable. There are ga llstones. Pancreas appears atrophic. Spleen unremarkable. Adrenals unremarkable. Bilateral renal cysts and additional sub centimeter hypodensities too small to characterize. Areas of bilateral jordyn l cortical scarring likely relates to remote insult. Bladder unremarkable. Prostate mildly enlarged . Small fat-containing periumbilical hernia. Aorta normal in caliber. Moderate atherosclerosis. S tomach unremarkable. No dilated loops small bowel. Appendix appears normal. Mild to moderate fecal retention in the colon. No lymphadenopathy or ascites. IMPRESSION: 1. No acute inflammatory process identified in the abdomen pelvis. 2. Cholelithiasis. 3. Mild to moderate fecal retention in the colon. 4. Enlarged prostate. 5. Bibasilar atelectasis and/or pneumonia. This appears increased at the right lung base.
== END 2018-10-30 08:01 | disposition home or self-care (01) ==
LOC: RAD 08:00
PROVIDERS: ATTEND Nurse Practitioner Family
DX: R10.31 Right lower quadrant pain (principal)
CPT/HCPCS: 36415; 80048

== ENCOUNTER 2018-11-06 12:26 | Outpatient (CLI) ==
--- NOTE | 2018-11-06 14:24 | DI ---
Exam: Two views of the chest. Comparison: CT chest performed 05/31/2018. Reason for exam: Pneumonia. FINDINGS: No pneumothorax, pleural effusion, or focal consolidation. Parenchymal changes seen consi stent with chronic lung disease. There is mild patchy airspace opacities seen in the right hilar reg ion. Impression: Right upper/hilar atelectasis or pneumonia in the setting of chronic lung disease.
== END 2018-11-06 12:27 | disposition home or self-care (01) ==
LOC: RAD 12:26
PROVIDERS: ATTEND Nurse Practitioner Family
DX: J18.9 Pneumonia, unspecified organism (principal)

== ENCOUNTER 2018-11-15 11:20 | Outpatient (CLI) | payer OTHER ==
--- NOTE | 2018-11-15 11:45 | DI ---
EXAM: Two views of the chest. History: Follow-up pneumonia Comparison: Chest radiograph 11/06/2018 Findings: Heart size is normal. Pacer device. No change in the chronic right perihilar infiltrate. No developing opacities. No appreciable pleural fluid and no pneumothorax. No acute osseous abnor malities. Impression: 1. No acute cardiopulmonary process. 2. No change in the chronic right perihilar infiltrate
== END 2018-11-15 11:21 | disposition home or self-care (01) ==
LOC: RAD 11:20
PROVIDERS: ATTEND Nurse Practitioner Family
DX: J18.9 Pneumonia, unspecified organism (principal)